=== PATIENT | female | born 1990 | race Caucasian/White ===

== ENCOUNTER 2019-07-04 18:03 | Inpatient (IN) ==
[2019-07-04] MEDS ORDERED: REGLAN INJ 10 MG VIAL IVP PRN (18:07)
[2019-07-04] MEDS ORDERED: PHENERGAN INJ 25 MG IM PRN (18:07)
[2019-07-04] MEDS ORDERED: NS 100 ML IV 100 ML IV ONE ×2 (18:37→18:46)
[2019-07-04] MEDS ORDERED: AMPICILLIN VIAL 2 GRAM ONE (18:37)
[2019-07-04] MEDS ORDERED: D5 1/2 NS 1000 ML 1,000 ML IV ONE (18:37)
[2019-07-04] MEDS: D5 1/2 NS 1000 ML 1,000 ML IV SCH (18:45)
[2019-07-04] MEDS ORDERED: CYTOTEC ONE (18:47)
[2019-07-04 18:49] LABS: BILIRUBIN,URINE NEGATIVE (NEGATIVE); BLOOD/HEMOGLOBIN,URINE NEGATIVE (NEGATIVE); GLUCOSE, URINE NEGATIVE (NEGATIVE); KETONES,URINE NEGATIVE (NEGATIVE); LEUKOCYTE ESTERASE ,URINE 1+ (NEGATIVE); NITRITES,URINE NEGATIVE (NEGATIVE); PH,URINE 6.5 (5.0 - 8.0); PROTEIN,URINE 1+ (NEGATIVE); UROBILINOGEN,URINE NORMAL (NORMAL)
[2019-07-04 18:50] LABS: BASOPHILS % (AUTO) 0.4 % (0.2-1.0); EOSINOPHILS # (AUTO) 0.1 x10^3/uL (0.0-0.2); EOSINOPHILS % (AUTO) 0.6 % (0.9-2.9); HEMATOCRIT 32.5 % (36.0-47.0); HEMOGLOBIN 11.4 g/dL (12.0-16.0); LYMPHOCYTES % (AUTO) 22.6 % (21.0-51.0); MEAN CORPUSCULAR HEMOGLOBIN 33.6 pg (27.0-34.0); MEAN CORPUSCULAR VOLUME 95.9 fL (80.0-100.0); MEAN PLATELET VOLUME 8.2 fL (7.4-11.0); MONOCYTES # (AUTO) 0.6 x10^3/uL (0.3-0.8); MONOCYTES % (AUTO) 6.7 % (0.0-13.0); NEUTROPHILS # (AUTO) 6.2 x10^3/uL (2.2-4.8); NEUTROPHILS % (AUTO) 69.7 % (42.0-75.0); PLATELET COUNT 258 X10^3/uL (150.0-450.0); RED BLOOD COUNT 3.39 X10^6/uL (3.5-5.4); RED CELL DISTRIBUTION WIDTH 13.9 % (11.6-16.5); WHITE BLOOD COUNT 8.8 X10^3/uL (3.6-10.0)
[2019-07-04] MEDS: AMPICILLIN VIAL 2 GRAM 2 G in NS 100 ML IV + SPIKE MINIBAG* 100 ML IV SCH (18:50)
[2019-07-04 18:58] LABS: APPEARANCE,URINE CLEAR (CLEAR); COLOR,URINE YELLOW (YELLOW)
[2019-07-04 18:59] LABS: BACTERIA,URINE 1+ /HPF (NEGATIVE); MUCUS,URINE MODERATE /HPF (NEGATIVE); RBC,URINE 0-2 /HPF (0-3); SQUAMOUS EPITHELIAL CELL,UR MODERATE /HPF (NEGATIVE)
[2019-07-04 19:00] LABS: ALANINE AMINOTRANSFERASE 29 Units/L (12-78); ASPARTATE AMINO TRANSFERASE 16 Units/L (15-37); BLOOD UREA NITROGEN 12 mg/dL (7-18); CALCIUM 8.7 mg/dL (8.5-10.1); CHLORIDE 103 mmol/L (98-107); CREATININE 0.78 mg/dL (0.55-1.02); LACTATE DEHYDROGENASE 152 Units/L (81-234); SODIUM 138 mmol/L (136-145); URIC ACID 4.6 mg/dL (2.6-6.0); eGFR NON BLACK RACES > 60 (>60)
[2019-07-04] MEDS ORDERED: CYTOTEC VG PRN (19:47)
[2019-07-04] MEDS ORDERED: AMPICILLIN VIAL 1 GRAM 1 G in NS 50 ML IV + SPIKE MINIBAG* 50 ML IV SCH (22:11)
[2019-07-05] MEDS ORDERED: NUBAIN INJ 10 ONE ×2 (00:39→07:08)
[2019-07-05] MEDS: NUBAIN INJ 200 MG VIAL MULTIDOSE IVP PRN ×2 (00:45→03:59)
[2019-07-05] MEDS ORDERED: D5 1/2 NS 1000 ML 1,000 ML IV ONE (02:58)
[2019-07-05] MEDS: D5 1/2 NS 1000 ML 1,000 ML IV SCH ×2 (03:00→11:30)
[2019-07-05] MEDS ORDERED: D5LR 1L W PITOCIN 10 UNITS/L 10 UNITS/1,000 ML BAG IV ONE (05:38)
[2019-07-05] MEDS ORDERED: D5LR 1L W PITOCIN 10 UNITS/L 10 UNITS/1,000 ML BAG IV PRN (05:46)
[2019-07-05] MEDS ORDERED: LR 1000 ML IV 1,000 ML IV ONE (06:31)
[2019-07-05] MEDS ORDERED: FENTANYL INJ 100 mcg ONE (08:18)
[2019-07-05] MEDS ORDERED: NAROPIN EPIDURAL 0.2% + FENTANYL 90MCG 60 ML EPI ONE ×2 (08:19→13:58)
[2019-07-05] MEDS ORDERED: EPHEDRINE SULFATE INJ ONE (08:42)
[2019-07-05] MEDS ORDERED: PITOCIN ONE (15:57)
[2019-07-05] MEDS ORDERED: XYLOCAINE 1 % (PLAIN) ONE ×2 (15:57→17:18)
[2019-07-05] MEDS ORDERED: D5 1/2 NS 1L W PITOCIN 20 UNITS/L 20 UNITS/1,000 ML BAG IV ONE (15:58)
[2019-07-05] MEDS ORDERED: MOTRIN TAB 800 MG PO PRN (18:42)
[2019-07-05] MEDS ORDERED: PHENERGAN INJ 25 MG IM PRN (18:42)
[2019-07-05] MEDS ORDERED: DERMOPLAST SPRAY TOP PRN (18:42)
[2019-07-05] MEDS ORDERED: ADACEL or BOOSTRIX TDaP VACCINE IM ONE (18:42)
[2019-07-05] MEDS: AMPICILLIN VIAL 2 GRAM 2 G in NS 100 ML IV + SPIKE MINIBAG* 100 ML IV SCH (19:24)
[2019-07-05] MEDS: MOTRIN TAB 800 MG PO PRN (19:55)
[2019-07-06] MEDS: D5 1/2 NS 1000 ML 1,000 ML with PITOCIN 20 UNITS IV SCH ×6 (02:18→18:30)
[2019-07-06] MEDS: MOTRIN TAB 800 MG PO PRN ×2 (02:58→18:31)
[2019-07-06 04:12] LABS: HEMATOCRIT 25.2 % (36.0-47.0)
[2019-07-06 04:14] LABS: HEMOGLOBIN 8.9 g/dL (12.0-16.0)
[2019-07-06] MEDS: PRENATAL PLUS PO SCH (08:53)
[2019-07-07] MEDS: D5 1/2 NS 1000 ML 1,000 ML with PITOCIN 20 UNITS IV SCH ×4 (02:04→10:25)
[2019-07-07] MEDS: PRENATAL PLUS PO SCH (09:24)
[2019-07-07] MEDS: MOTRIN TAB 800 MG PO PRN (09:24)
[2019-07-07 09:41] VITALS: BP 112/59
== END 2019-07-07 11:30 | disposition home or self-care (01) | DRG 807 ==
LOC: LD 18:03 → MED/SURG 07-05 18:26
PROVIDERS: ADMIT Obstetrics & Gynecology; ATTEND Obstetrics & Gynecology
CPT/HCPCS: 36415; 59409; 80048; 81001; 83615; 84450; 84460; 84550; 85014; 85018; 85025; 85384; 85610; 85730; 86592; 86850; 86900; 86901; A4216; A4222; S0191; S0197; J0290; J2300; J2590; J3010; J3490; J7050; J7120; S5010

== ENCOUNTER 2020-10-18 01:03 | Inpatient (IN) ==
[2020-10-18 01:31] VITALS: BMI 34.3
[2020-10-18] MEDS ORDERED: D5 1/2 NS 1000 ML 1,000 ML IV ONE ×2 (01:36→01:45)
[2020-10-18 01:39] LABS: BILIRUBIN,URINE NEGATIVE (NEGATIVE); BLOOD/HEMOGLOBIN,URINE 3+ (NEGATIVE); GLUCOSE, URINE NEGATIVE (NEGATIVE); KETONES,URINE 3+ (NEGATIVE); LEUKOCYTE ESTERASE ,URINE NEGATIVE (NEGATIVE); NITRITES,URINE NEGATIVE (NEGATIVE); PROTEIN,URINE NEGATIVE (NEGATIVE); UROBILINOGEN,URINE NORMAL (NORMAL)
[2020-10-18 01:44] LABS: APPEARANCE,URINE CLEAR (CLEAR); BACTERIA,URINE TRACE /HPF (NEGATIVE); COLOR,URINE PALE YELLOW (YELLOW); SQUAMOUS EPITHELIAL CELL,UR MODERATE /HPF (NEGATIVE)
[2020-10-18 01:46] LABS: AMNISURE ROM TEST THERE IS A RUPTURE (NO RUPTURE)
[2020-10-18] MEDS ORDERED: D5 1/2 NS 1000 ML 1,000 ML IV SCH (02:24)
[2020-10-18] MEDS ORDERED: REGLAN INJ 10 MG VIAL IVP PRN (02:24)
[2020-10-18] MEDS ORDERED: NS 100 ML IV 100 ML IV ONE (02:24)
[2020-10-18] MEDS ORDERED: PITOCIN IVP ONE (02:24)
[2020-10-18] MEDS: AMPICILLIN VIAL 2 GRAM ONE (02:25)
[2020-10-18] MEDS ORDERED: LR 1000 ML IV 1,000 ML IV ONE (02:25)
[2020-10-18] MEDS ORDERED: AMPICILLIN VIAL 2 GRAM 2 G in NS 100 ML IV + SPIKE MINIBAG* 100 ML IV SCH (02:30)
[2020-10-18] MEDS ORDERED: FENTANYL INJ 100 mcg ONE (02:53)
[2020-10-18] MEDS ORDERED: EPHEDRINE SULFATE INJ ONE ×2 (02:53→03:00)
[2020-10-18] MEDS ORDERED: NAROPIN EPIDURAL 0.2% 100 ML ONE (02:54)
[2020-10-18] MEDS ORDERED: D5 1/2 NS 1L W PITOCIN 20 UNITS/L 20 UNITS/1,000 ML BAG IV ONE (03:22)
[2020-10-18] MEDS ORDERED: BETADINE SOLN ONE (03:22)
[2020-10-18] MEDS ORDERED: PHENERGAN INJ 25 MG IM PRN (04:49)
[2020-10-18] MEDS ORDERED: D5 1/2 NS 1000 ML 1,000 ML with PITOCIN 20 UNITS IV SCH ×2 (05:00)
[2020-10-18] MEDS ORDERED: AMBIEN PO PRN (05:20)
[2020-10-18] MEDS ORDERED: DERMOPLAST PAIN RELIEF SPRAY TOP PRN (05:20)
[2020-10-18] MEDS ORDERED: MILK OF MAGNESIA PO PRN (05:20)
[2020-10-18] MEDS ORDERED: AMPICILLIN VIAL 1 GRAM 1 G in NS 50 ML IV + SPIKE MINIBAG* 50 ML IV SCH (06:30)
[2020-10-18] MEDS: PRENATAL PLUS PO SCH (08:14)
[2020-10-18] MEDS: MOTRIN TAB 800 MG PO PRN ×2 (16:04→23:04)
[2020-10-19 06:16] LABS: HEMATOCRIT 28.8 % (36.0-47.0); HEMOGLOBIN 10.1 g/dL (12.0-16.0)
[2020-10-19 07:36] VITALS: BP 110/63
[2020-10-19] MEDS: PRENATAL PLUS PO SCH (08:16)
--- NOTE | 2020-10-19 08:34 | NOTE.PROOB ---
progress Note OB- Subjective Data Subjective: No complaints, decreased lochia. Tolerating regular diet. No N/V. Ambulating well. No dysuria. Objective Data Result Diagrams: 10/19/20 05:12 Objective Data: CV= RRR no MRG Lungs=CTA Bilaterally Abd=(+) BS, soft, NTND, Fundus firm/NT/ at 3 cm below umbilicus. Ext=no edema, NT, no cords Plan (1) Vaginal delivery: Plan: ready for d/c
== END 2020-10-19 10:20 | disposition home or self-care (01) | DRG 807 ==
LOC: ER 01:09 → LD 02:15 → MED/SURG 05:25
PROVIDERS: ADMIT Obstetrics & Gynecology; ATTEND Obstetrics & Gynecology
DX: D64.9 Anemia, unspecified; O99.013 Anemia complicating pregnancy, third trimester; Z3A.39 39 weeks gestation of pregnancy; O70.1 Second degree perineal laceration during delivery; O99.824 Streptococcus B carrier state complicating childbirth; Z37.0 Single live birth